=== PATIENT | male | born 1940 | race Caucasian/White ===

== ENCOUNTER 2016-07-04 18:41 | Emergency (ER) | payer MEDICARE, OTHER ==
[~2016-07-04] VITALS: Ht 180.3 cm; Wt 126.0 kg
[2016-07-04 19:00] VITALS: PULSE 68; RESP 16; TEMP 98.6; O2SAT 96
[2016-07-04] MEDS ORDERED: LIPI40TA PO (20:52)
[2016-07-04] MEDS ORDERED: PLAV75TA29 PO (20:52)
[2016-07-04] MEDS ORDERED: METF500T PO (20:52)
[2016-07-04] MEDS ORDERED: METO100T9 PO (20:52)
[2016-07-04] MEDS ORDERED: CEPH-460 PO (20:53)
[2016-07-04] MEDS ORDERED: BACT800T5 PO (20:53)
--- NOTE | 2016-07-04 20:54 | PD ---
HPI Chief Complaint: Musculoskeletal Complaint Time Seen by Provider: 20:53 Travel History International Travel<30 days: No Contact w/Intl Traveler<30days: No Traveled to known affect area: No History of Present Illness HPI 75-year-old male with a history of hypertension, hyperlipidemia, diabetes, peripheral vascular disease presents to the emergency department for evaluation of right fourth toe pain. The patient states that for the past 2 weeks his right fifth toe has been rubbing against the lateral aspect of his right fourth toe. States it has been getting worse and now has an ulcer on the right fourth toe. States he has been putting bandages and gauze between the toes to try to help them from rubbing. States today it became more painful which is why he came in for evaluation. States he has a history of peripheral vascular disease and had a cath of his right leg a few months ago but "the doctor wasn't able to put in a stent." He states he has had discoloration of the right fourth toe for months and it has actually been improving. He denies fever, chills, nausea , vomiting, numbness or tingling, weakness, discharge or drainage from the site. Patient states his PCP is in [place], he lives here in [facility] seasonally. No other complaints. PFSH Past Medical History High Cholesterol: Yes Coronary Artery Disease: Yes Diabetes: Yes Hypertension: Yes Medical other: Yes (peripheral vascular disease) Past Surgical History Appendectomy: Yes Other Surgery: Yes (cardiac catheterization) Social History Alcohol Use: No Tobacco Use: No Substance Use: No Allergies-Medications (Allergen,Severity, Reaction): Coded Allergies: No Known Allergies (Unverified , 07/04/16) Reported Meds & Prescriptions Reported Meds & Active Scripts Active Clindamycin (Clindamycin HCl) 150 Mg Cap 450 Mg PO Q8HR 14 Days Reported Lipitor (Atorvastatin Calcium) 40 Mg Tab 40 Mg PO HS Plavix (Clopidogrel Bisulfate) 75 Mg Tab 75 Mg PO DAILY Metoprolol Succinate ER 24 HR (Metoprolol Succinate) 100 Mg Tab 100 Mg PO DAILY Metformin (Metformin HCl) 500 Mg Tab 500 Mg PO BIDPC With meals Review of Systems Except as stated in HPI: all other systems reviewed are Neg Physical Exam Narrative GENERAL: Well-nourished and well-developed pleasant male patient in no acute distress who is nontoxic appearing. SKIN: Warm and dry. HEAD: Normocephalic and atraumatic. EYES: No injection, drainage, or hyphema noted. PERRLA. EOMI. ENT: No nasal drainage noted. Oropharynx is clear. NECK: Supple and the trachea is midline. CARDIOVASCULAR: Regular rate and rhythm. RESPIRATORY: Breath sounds are equal bilaterally with no accessory muscle use, wheezing, rhonchi, or crackles. MUSCULOSKELETAL: Right fourth toe with mild purple discoloration, there is a 1 cm shallow ulcer to the lateral aspect of the toe with maceration of the surrounding skin. DP and PT pulses are dopplerable bilaterally. Capillary refill is within normal limits. No obvious deformities, swelling, cyanosis, or ecchymosis is present throughout the upper and lower extremities. Patient has full range of motion without any signs of neurovascular compromise. NEUROLOGICAL: Awake, alert, and oriented. Normal speech and gait. Cranial nerves are grossly intact. Data Data Last Documented VS Vital Signs Date Time Temp Pulse Resp B/P Pulse Ox O2 Delivery O2 Flow Rate FiO2 07/04/16 21:55 70 16 193/87 97 Room Air 07/04/16 19:00 98.6 Orders Foot, Complete ([id number]) (07/04/16 21:03) Clindamycin (Cleocin) (07/04/16 21:15) MDM Medical Decision Making Medical Screen Exam Complete: Yes Emergency Medical Condition: Yes Differential Diagnosis Diabetic ulcer versus ischemic ulcer versus cellulitis versus peripheral vascular disease Narrative Course 75-year-old male presents to the emergency department for evaluation of ulcer between right fourth and fifth toes for 2 weeks. Patient is afebrile, vital signs are stable. The patient has a history of diabetes and peripheral vascular disease. He does have blood flow to the right foot. There may be a small occlusion to the right fourth toe causing decreased blood flow however the patient has a known history of peripheral vascular disease and this is not an acute occlusion. X-ray imaging of the right foot is negative for any acute abnormalities and no indications of osteomyelitis. At this time I think it is appropriate to treat the patient with outpatient oral antibiotics for this wound. Discussed proper wound care techniques and when to return to the emergency department. Patient verbalizes understanding and agreement with treatment plan. I discussed the case with my attending physician Dr. Wolf who is aware of the patients history, physical examination findings, and treatment plan. Diagnosis Primary Impression: Diabetic ulcer of toe of right foot Additional Impression: Peripheral vascular disease Referrals: Primary Care Physician Patient Instructions: Diabetic Foot Ulcers (ED), General Instructions, Peripheral Vascular Disease (ED) Additional Instructions: Keep area clean and dry. Take medications as prescribed with food and a full glass of water. Follow-up with your Primary Care Physician. Return to the ED for any acute worsening of symptoms. Med/Other Pt SpecificInfo: Prescription(s) given Scripts Clindamycin 150 Mg [id number] Mg PO Q8HR 14 Days Ref 0 Prov:Jan Wolf MD 07/04/16 Disposition: 01 DISCHARGE HOME Condition: Stable Shayy Martines Jul 04, 2016 20:54
[2016-07-04 20:59] VITALS: BP 206/84
[2016-07-04] MEDS ORDERED: CLINDAMYCIN 150 MG CAP PO ONE (21:15)
--- NOTE | 2016-07-04 21:53 | RADHPO ---
EXAM DATE/TIME: 07/04/2016 21:13 [facility] COMPARISON: No previous studies available for comparison. INDICATIONS : Right foot, fourth digit pain, swelling and redness. No injury. MEDICAL HISTORY : Peripheral vascular disease. Diabetes. SURGICAL HISTORY : None. ENCOUNTER: Initial ACUITY: 2 weeks PAIN SCORE: 5/10 LOCATION: Right foot. FINDINGS: There is generalized soft-tissue swelling without evidence for osteomyelitis. Degenerative changes ar e seen in the tarsals. CONCLUSION: Degenerative changes without evidence for osteomyelitis. Guillermo Rose MD FACR on July 04, 2016 at 21:41 Board Certified Radiologist. This report was verified electronically.
[2016-07-04 21:55] VITALS: BP 193/87; PULSE 70; RESP 16; O2SAT 97
[2016-07-04] MEDS ORDERED: CLIN1CAP5 PO (22:09)
== END 2016-07-04 22:28 | disposition home or self-care (01) ==
LOC: PHED 18:41 → PHEFT 22:28
DX: L97.519 Non-pressure chronic ulcer of other part of right foot with unspecified severity (principal); E11.621 Type 2 diabetes mellitus with foot ulcer; I73.9 Peripheral vascular disease, unspecified; I25.10 Atherosclerotic heart disease of native coronary artery without angina pectoris; E78.00 Pure hypercholesterolemia, unspecified; Z79.4 Long term (current) use of insulin
CPT/HCPCS: 73630; 99283